=== PATIENT | female | born 1995 | race Caucasian/White ===

== ENCOUNTER 2016-06-14 18:17 | Inpatient (IN) | payer BC, OTHER ==
[~2016-06-14] VITALS: Ht 170.2 cm; Wt 59.0 kg
[2016-06-16] MEDS ORDERED: ONDANSETRON ODT 4 MG TAB.RAPDIS SL PRN (13:15)
[2016-06-16] MEDS ORDERED: DIAZEPAM 10 MG TABLET PO PRN ×2 (13:15)
[2016-06-16] MEDS ORDERED: ONDANSETRON 4 MG/2 ML VIAL IM PRN (13:15)
[2016-06-16] MEDS ORDERED: CLONIDINE HCL 0.1 MG TABLET PO PRN (13:15)
[2016-06-16] MEDS ORDERED: DICYCLOMINE HCL 20 MG TABLET PO PRN (13:15)
[2016-06-16] MEDS ORDERED: METHOCARBAMOL 750 MG TABLET PO PRN (13:15)
[2016-06-16] MEDS ORDERED: LORAZEPAM 2 MG/1 ML VIAL IM PRN (13:15)
[2016-06-16] MEDS ORDERED: HYDROXYZINE PAMOATE 25 MG CAPSULE PO PRN (13:15)
[2016-06-16] MEDS ORDERED: IBUPROFEN 600 MG TABLET PO PRN (13:15)
[2016-06-16] MEDS ORDERED: BUPRENORPHINE HCL 2 MG TAB.SUBL SL PRN (13:15)
[2016-06-16] MEDS ORDERED: LOPERAMIDE HCL 2 MG CAPSULE PO PRN (13:15)
[2016-06-16] MEDS ORDERED: MIRALAX 17 GM POWD.PACK PO PRN (13:15)
[2016-06-16] MEDS ORDERED: MAGNESIUM HYDROXIDE 30 ML LIQUID UDC PO PRN (13:15)
[2016-06-16] MEDS ORDERED: diphenhydrAMINE 50 MG CAPSULE PO PRN (13:15)
[2016-06-16] MEDS ORDERED: MAG HYDROX/AL HYDROX/SIMETH 30 ML LIQUID UDC PO PRN (13:15)
[2016-06-16] MEDS ORDERED: ACETAMINOPHEN 325 MG TABLET PO PRN (13:15)
[2016-06-16] MEDS ORDERED: DIAZEPAM 5 MG TABLET PO PRN (13:15)
[2016-06-16] MEDS ORDERED: LEVO750T46 PO (13:57)
[2016-06-16 14:11] LABS: *URINE HCG, QUAL NEGATIVE (NEGATIVE)
[2016-06-16 14:21] LABS: *AMPHETAMINE, URINE POSITIVE (NEGATIVE); *BARBITURATE, URINE NEGATIVE (NEGATIVE); *CANNABINOID, URINE NEGATIVE (NEGATIVE); *COCCAINE, URINE NEGATIVE (NEGATIVE); *OPIATE, URINE POSITIVE (NEGATIVE); *PHENCYCLIDINE SCREEN,URINE NEGATIVE (NEGATIVE)
[2016-06-16 15:00] LABS: BASOPHILS % (AUTO) 0.2 % (0.0-2.0); EOSINOPHILS # (AUTO) 0.1 K/uL (0.0-0.7); EOSINOPHILS % (AUTO) 0.8 % (0.0-7.0); HEMATOCRIT 35.9 % (31.2-41.9); HEMOGLOBIN 12.3 g/dL (10.9-14.3); LYMPHOCYTES # (AUTO) 2.5 K/uL (20.0-40.0); LYMPHOCYTES % (AUTO) 29.2 % (20.5-51.5); MEAN CORPUSCULAR HEMOGLOBIN 28.5 uug (24.7-32.8); MEAN CORPUSCULAR HGB CONC 34 g/dL (32.3-35.6); MEAN CORPUSCULAR VOLUME 83.3 fL (75.5-95.3); MONOCYTES # (AUTO) 0.9 K/uL (2.0-10.0); MONOCYTES % (AUTO) 10.3 % (0.0-11.0); NEUTROPHILS # (AUTO) 5.2 K/uL (1.8-8.9); NEUTROPHILS % (AUTO) 59.5 % (38.5-71.5); PLATELET COUNT (AUTO) 202 K/uL (179-408); RED BLOOD CELL COUNT(AUTO) 4.31 MIL/uL (3.63-4.92); RED CELL DISTRIBUTION WIDTH 12.4 % (12.3-17.7); WHITE BLOOD COUNT (AUTO) 8.7 K/uL (3.8-11.8)
--- NOTE | 2016-06-16 15:05 | NUR ---
ADMISSION Admitted a 20 year old female from [facility]. patient arrived on unit at 1304. Patients body assessment completed noted with multiple track quiñones on bilateral forearms, also noted with multiple scabs on bilateral upper extremities and lower extremities, no open wounds noted, no bruising noted, per patient scabs are from picking at her skin. Per patient she was started on antibiotic therapy Levaquin 750mg for abscess on right inner arm, area noted with no redness, but noted with swelling and hard to touch, per patient has taken for one day. Per patient was in the emergency room two days ago, but did not get admitted for evaluation of abscess on left inner forearm. Patients body search completed by female FRICTION PAINT MACHINE TENDER no contraband found. Patient was oriented to unit and to room, education regarding call light use provided with good verbal understanding. patient is alert and oriented x4. bp: 118/74 p: 78 r: 16 o2 sat: 98% room air t: 98.0. Denies pain/discomfort. Patient is 5 feet 7 inches and weighs 130lbs. Patient reports no known drug allergies. Reports does not have a primary care physician. Patient with admitting Dx: opiate/bzo dependence. Patient denies any pre existing medical or psychiatric conditions. Patient reports history of seizure, reports one episodes in june 2015 when she was arrested and in intermediate, seizure was r/t BZO W/D. Patient reports mother is a marijuana smokes, father is an alcoholic drinker, and sister is a methamphetamine ex-user. Per patient reports has had 7 spinal surgeries r/t spinal kyphosis, last spinal surgery was August 2012. Patient also reports had brain surgery 01/2016 r/t subdural hematoma, per patient had head trauma and when she went to intermediate in june 2015 fell d/t seizure activity which caused hematoma to burst and began growing in jan 2016 "bony mass, lesion" was removed. Patient also reports she has a "blood clot" to right arm D/T IV drug use. Patient with substance use history of: 1. heroin began using at the age of 11 for the last 1.5 months has been using heroin 1gram IV, last used 0.3gram on 06/16/2016. 2. Xanax began using at the age of 17, for the last 1.5 months has been using Xanax PO 1.5-2 bars of 2 mg each daily, last used 06/13/2016. 3. methamphetamine, began using at the age of 13 for the last 1.5 months has been using methamphetamine smoked 0.1gram, last used 06/13/2016 0.1gram. 4. marijuana, began using at the age of 10, for the last 4 years has been using marijuana (in) every other day "a few hits" reports last used 06/15/2016 a "few hits". Per patient she relapsed 1.5 month ago, reports was sober for 2 years. Patient treatment history. 1. [facility] detox treatment for 7 days in Nov 2014 2. [facility] in [place] for 2 weeks in July 2015. 3. [facility] area from August 2015-Feb 2016. patient was seen and examined by Dr. Yanes with new admitting orders. Psychiatrist notified of new admission. safety measures in place. call light with in reach, will continue to monitor closely.
[2016-06-16 15:15] LABS: ETHANOL < 3 MG/DL (0-0)
[2016-06-16 15:16] LABS: ALANINE AMINOTRANSFERASE 17 U/L (14-59); ALBUMIN 3.5 g/dL (3.4-5.0); ALKALINE PHOSPHATASE 114 U/L (50-136); ASPARTATE AMINOTRANSFERASE 19 U/L (15-37); BILIRUBIN,TOTAL 0.2 mg/dL (0.2-1.0); CALCIUM 8.7 mg/dL (8.5-10.1); CARBON DIOXIDE 30 mmol/L (21-32); CHLORIDE 103 mmol/L (98-107); CREATININE 0.6 mg/dL (0.6-1.3); GFR 125 mL/min (>60); GLUCOSE 76 mg/dL (74-106); MAGNESIUM 1.7 mg/dL (1.8-2.4); SODIUM SERUM 141 mmol/L (136-145); TOTAL PROTEIN, SERUM 7.4 g/dL (6.4-8.2); UREA NITROGEN, BLOOD 8 mg/dL (7-18)
--- NOTE | 2016-06-16 15:37 | NUR ---
MD COMMUNICATION Patient to began a 5 day Valium taper today and scheduled to begin 5 day Subutex taper tomorrow, will monitor closely, has PRN medications available for s/sx of infection.
[2016-06-16] MEDS: LEVOFLOXACIN 750 MG TABLET PO SCH (15:43)
[2016-06-16] MEDS: DIAZEPAM 10 MG TABLET PO SCH ×2 (15:43→21:06)
[2016-06-16] MEDS ORDERED: MAGNESIUM OXIDE 400 MG TABLET PO ONE (16:00)
[2016-06-16 16:16] LABS: HIV-1 p24 ANTIGEN NON REACTIVE (NONREACTIVE); HIV-1/2 ANTIBODY NON REACTIVE (NONREACTIVE)
[2016-06-16 17:42] VITALS: BP 106/60
--- NOTE | 2016-06-16 18:48 | NUR ---
END OF SHIFT Patient alert and oriented x4, vital signs were stable during shift. Patient compliant with therapeutic plan of care. Patient with admitting Dx: Opiate/BZO dependence. Patient was placed on a 5 day Valium taper started today at 1500 and 5 day Subutex taper to start tomorrow (06/17/2016). Well tolerated, no ASE noted. Patient encouraged adequate PO fluid intake as tolerated . 1500 assessment patient presented with moderate anxiety with ciwa score of: 4 and cow score of: 0. 1700 assessment patient presented with: no s/sx of withdrawal with cow score of: 0 and ciwa score of: 0. Administered no PRNs during shift. Magnesium was replaced as ordered for mg level of 1.7. Abdomen is soft and non distended, bowel sounds heard in all quadrants. Patient encouraged to attend group therapies/sessions to learn new coping skills to prevent relapse, denies SI/HI, noted self motivated towards sobriety. Patients safety measures as in place. All needs met and rendered, will continue to monitor closely. Patient endorsed to instant potato processing supervisor nurse all pertinent information discussed
[2016-06-16 20:00] VITALS: BP 91/45
--- NOTE | 2016-06-16 20:00 | NUR ---
Start of Shift Note: Report received from day shift nurse. Pt is a 18 yo female admitted on 06/16/16 for medically-supervised withdrawal from opiates and benzodiazepines. Pt reports using 1gm IV heroin, 3-4mg Xanax, and 0.2gm methamphetamine daily for 1.5 months. Pt also reports daily use of marijuana. Pt has started a 5-day Valium taper today and is to start a 5-day Subutex taper tomorrow morning. Last day shift COWS=0, CIWA=0. Pt is on a regular diet. Pt reports NKDA/NKFA. Pt reports med hx: spinal kyphosis with sx repair x7, and hx of seizure r/t bzo withdrawal (June 2015). Pt is currently in room, and reports diaphoresis and chills. Bed is in low position and locked, side rails up x2, call light within reach. Will continue to monitor.
[2016-06-16] MEDS: LACTOBACILLUS RHAMNOSUS GG 1 EACH CAPSULE PO SCH (21:06)
[2016-06-17] VITALS (7 sets, daily range): BP systolic 105–112; BP diastolic 53–71
--- NOTE | 2016-06-17 04:00 | NUR ---
COWS and CIWA Deferred: COWS and CIWA assessments are deferred for sleep. VS: 98.6, 97, 12, 99%, 105/60. All safety precautions are in place. Will continue to monitor. Addendum: 06/17/16 at 0505 by SANTINO HICKEY RN Amended: Links added.
--- NOTE | 2016-06-17 06:51 | NUR ---
End of Shift Note: Pt is a 20 yo female admitted to [facility] on 06/16/16 for medically-supervised withdrawal from opiates and benzodiazepines. Pt reports med hx: spinal kyphosis with sx repair x7, and hx of seizure r/t bzo withdrawal (June 2015). Pt is on a regular diet. Pt reports NKDA/NKFA. Pt reports using 1gm IV heroin, 3-4mg Xanax, and 0.2gm methamphetamine daily for 1.5 months. Pt also reports daily use of marijuana. Pt is to start day 2 of a 5-day Valium taper and is to start day 1 of a 5-day Subutex taper this morning. Scheduled medication regime effectively managed s/s of withdrawal this shift and COWS/CIWA scores remained low. Last COWS=3, CIWA=3 at 00:00. No PRN medications were necessary. V/S stable throughout shift, with HR elevated at 85 (20:00), 100 (00:00), and 97 (04:00). Total fluid intake this shift: 946 ml; output: urine x 1 and BM x 0. Pt currently in bed and slept 10 hours this shift. Pt endorsed to day shift nurse.
--- NOTE | 2016-06-17 08:02 | NUR ---
BEGINNING OF SHIFT Patient endorsement report received from plant operator/shift supervisor nurse, all pertinent information discussed. Patient Per plant operator/shift supervisor report patient slept for 10 hours, last cow score of: 3 and last ciwa score of: 3. Received no PRN's doing plant operator/shift supervisor. Patient with admitting Dx: opiate/bzo dependence. Patient with ongoing Valium taper as ordered and is scheduled to begin 5 day Subutex taper as ordered by MD will administer as ordered within parameters as ordered by MD. Patient received in bed with eyes closed, respirations are even and unlabored. patient responsive to verbal stimuli. educated regarding plan of care for the day and medication regimen with good verbal understanding. will continue to monitor closely. safety measures in place.
[2016-06-17] MEDS: LACTOBACILLUS RHAMNOSUS GG 1 EACH CAPSULE PO SCH ×2 (08:42→20:46)
[2016-06-17] MEDS: DIAZEPAM 5 MG TABLET PO SCH ×4 (08:42→20:47)
[2016-06-17] MEDS: MULTIVITAMINS,THERAPEUTIC TABLET PO SCH (08:42)
[2016-06-17] MEDS ORDERED: TUBERCULIN,PURIF.PROT.DERIV. 5 TU/0.1 ML TEST ID ONE (09:00)
[2016-06-17] MEDS: BUPRENORPHINE HCL 2 MG TAB.SUBL SL SCH ×3 (09:00→20:47)
--- NOTE | 2016-06-17 10:30 | NUR ---
MD COMMUNICATION Patient refused 0900 dose of Subutex as per patient "i don't need it right now" Dr. Yanes notified, as per MD recommended for patient to received Subutex 4mg sl, per MD, risk vs benefits of refusing detox medications were explained by doctor and by nurse. Educated regarding s/sx of withdrawal. Per nursing assessment at 1000 patient presenting with: heart rate of 83, observable moist on face, larger than normal size pupils, mild bone and joint aches, yawning x2, and gooseflesh with cow score of: 11. Will continue to monitor closely. Safety measures in place. call light kept with in reach at all times. will continue to monitor.
[2016-06-17] MEDS: LEVOFLOXACIN 750 MG TABLET PO SCH (14:11)
[2016-06-17 14:13] LABS: HCV AB <0.1 s/co ratio (0.0-0.9); HEPATITIS B CORE AB, IgM Negative (Negative); HEPATITIS B SURFACE AG Negative (Negative)
--- NOTE | 2016-06-17 18:52 | NUR ---
END OF SHIFT Patient alert and oriented x4, vital signs were stable during shift. Patient compliant with therapeutic plan of care. Patient with admitting Dx: Opiate/BZO dependence. Patient continues on a 5 day Valium taper and 5 day Subutex taper, well tolerated, no ASE noted. Patient encouraged adequate PO fluid intake as tolerated . 0900 assessment patient presented with: c/o chills, pupils larger than normal size, mild bone and joint aches. And mild anxiety and barely sweating with cow score of: 2. 1300 assessment patient presented with: sweats, mild anxiety, heart rate of 82, pupils larger alysha normal size, mild bone and joint aches, yawning, and goose bumps with cow score of: 11. 1700 assessment patient presented with: heart rate of 84, c/o chills, pupils larger than normal, mild bone and joint aches, moist eyes, yawning x2, goosebumps, mild anxiety and barely sweating with cow score of: 10 and ciwa score of: 2, detox medications effective at reducing withdrawal symptoms. Patient refused 0900 dose of Subutex, risk of benefits of refusing detox medications were explained to patient. 1500 dose of Subutex administered as ordered, well tolerated, no ASE noted. Patient PPD done on left forearm, procedure well tolerated. Abdomen is soft and non distended, bowel sounds heard in all quadrants. Patient encouraged to attend group therapies/sessions to learn new coping skills to prevent relapse, denies SI/HI, noted self motivated towards sobriety. Patients safety measures as in place. All needs met and rendered, will continue to monitor closely. Patient endorsed to captain assistant nurse all pertinent information discussed.
--- NOTE | 2016-06-17 19:15 | NUR ---
Start of Shift Note: Patient is a 20 y/o female admitted on 06/16/16 for Opiate and Benzo dependence. Patient reported using Heroin IV 1 gram daily and Xanax PO 3-4mg daily for 1.5 months. Patient also reported using Meth & Marijuana. Patient has medical history of Spinal Kyphosis surgery and history of seizure in June 2015 d/t benzo withdrawal. Patient is on a regular diet with no known food and drug allergies. Full Code status. Patient is on a 5-day Valium and 5-day Subutex taper and tolerating well. Patient has multiple track quiñones & scabs on both BUE & BLE. Patient has abscess on her right arm and she is on ATB Levaquin. Last COWS is 10 CIWA 2. No PRN's given during day shift. Patient is alert & oriented x4. No shortness of breath noted. Respiration even & unlabored. Abdomen soft & non-distended. No nausea/vomiting noted. Patient denies pain/discomfort. Patient complains of sweating, chills, restlessness & teary eyes. No hallucinations noted. Patient denies SI/HI. Safety precautions are in place. Bed locked in lowest position. Both side rails up. Call light within patient reach. Will continue to monitor patient.
[2016-06-18] VITALS: BP 98/60
[2016-06-18 04:00] VITALS: BP 107/60
--- NOTE | 2016-06-18 07:00 | NUR ---
Start of Shift Endorsement received from nightshift nurse. Pt is a 20 y/p female admitted for Heroin and Xanax dependence. Pt has been placed on a 5 day Valium and 5 day Subutex taper. Pt is tolerating the tapers well and mild to moderately withdrawing at this time AEB COWS 6, CIWA 3. NO PRN medications were administered. Pt slept 8 hours. VS WNL, Full Code. PT is alert and oriented x4. Pt is in STABLE condition at this time. Remains compliant with medication and diet regimen. All needs have been met, All safety measures in place per hospital policy. Bed in lowest position, side rails up x2, call-light within reach. Will continue to monitor
--- NOTE | 2016-06-18 07:21 | NUR ---
END OF SHIFT NOTE: Patient is a 20 y/o female admitted on 06/16/16 for Opiate and Benzo dependence. Patient reported using Heroin IV 1 gram daily and Xanax PO 3-4mg daily for 1.5 months. Patient also reported using Meth & Marijuana. Patient has medical history of Spinal Kyphosis surgery and history of seizure in June 2015 d/t benzo withdrawal. Patient is on a regular diet with no known food and drug allergies. Full Code status. Patient is on a 5-day Valium and 5-day Subutex taper and tolerating well. Patient has multiple track quiñones & scabs on both BUE & BLE. Patient has abscess on her right arm and she is on ATB Levaquin. Last COWS 6 CIWA 3. No PRN's given during my shift. Pt had an uneventful night. Pt remained stable and vitals remains WNL. Pt remained compliant with treatment plan. Pt slept for a total of 8 hours. Pt consumed 1264 ml of fluids. Voided 4x with no bowel movement. All needs attended & met. Safety precautions are in place. Bed locked in lowest position. Both side rails up. Call light within pt's reach. Will endorse pt to day shift nurse.
[2016-06-18 08:00] VITALS: BP 124/75
[2016-06-18] MEDS: LACTOBACILLUS RHAMNOSUS GG 1 EACH CAPSULE PO SCH ×2 (08:53→21:50)
[2016-06-18] MEDS: MULTIVITAMINS,THERAPEUTIC TABLET PO SCH (08:53)
[2016-06-18] MEDS: DIAZEPAM 5 MG TABLET PO SCH ×3 (08:53→21:50)
[2016-06-18] MEDS ORDERED: BUPRENORPHINE HCL 2 MG TAB.SUBL SL SCH (09:00)
[2016-06-18 12:00] VITALS: BP 112/60
--- NOTE | 2016-06-18 13:31 | NUR ---
Encourage client to attend group therapy session.
[2016-06-18] MEDS: BUPRENORPHINE HCL 2 MG TAB.SUBL SL SCH ×2 (15:36→21:50)
[2016-06-18] MEDS: LEVOFLOXACIN 750 MG TABLET PO SCH (15:36)
[2016-06-18 16:00] VITALS: BP 102/65
--- NOTE | 2016-06-18 18:54 | NUR ---
End of Shift Endorsement given to nightshift nurse. Pt is a 20 y/p female admitted for Heroin and Xanax dependence. Pt has been placed on a 5 day Valium and 5 day Subutex taper. Pt is tolerating the tapers well and moderately withdrawing at this time AEB COWS 6, CIWA 4. Pt presented with COWS of 10 and CIWA 8 during morning but her symptoms improved throughout the day. NO PRN medications were administered. PT slept the whole day in her room, sleeping. PT did not participate in groups or activities. Pt reports wanting to just sleep. Educated pt on side effects of Valium and Subutex, encouraged pt to go outside and participate in groups. VS WNL, Full Code. PT is alert and oriented x4. Pt is in STABLE condition at this time. Remains compliant with medication and diet regimen. All needs have been met, All safety measures in place per hospital policy. Bed in lowest position, side rails up x2, call-light within reach. Will continue to monitor
--- NOTE | 2016-06-18 19:30 | NUR ---
START OF SHIFT NOTES : Endorsement received from nightshift nurse. Pt is a 20 y/p female admitted for Heroin and Xanax dependence. Pt has been placed on a 5 day Valium (started 06/16/2016) and 5 day Subutex(started 06/17/2016) taper. Pt is tolerating the tapers well , last COWS 6, CIWA 4 at 16:00. VS WNL, Full Code. PT is alert and oriented x4. Pt is in STABLE condition at this time. Remains compliant with medication and diet regimen. Safety measures in place : bed on lowest position with side rails x2 up for safety, call light within reach. Will continue to monitor closely and offer help.
[2016-06-18 20:00] VITALS: BP 111/72
[2016-06-19] VITALS: BP 101/54
[2016-06-19 04:00] VITALS: BP 98/56
--- NOTE | 2016-06-19 07:05 | NUR ---
END OF SHIFT NOTE : Pt is a 20 y/p female admitted for Heroin and Xanax dependence. Pt has been placed on a 5 day Valium (started 06/16/2016) and 5 day Subutex(started 06/17/2016) taper. Pt is tolerating the tapers well. Full Code. PT is alert and oriented x4. Pt is in STABLE condition at this time. Pt. has tachycardia, GE=125 in the evening, ND=492 at 04:00, BP was stable during my shift. Pt remains compliant with the treatment plan. No PRNs were given during my shift. RR=16, even and unlabored, lungs clear upon auscultation, abdomen soft and non- distended. Pt denies nausea, vomiting and diarrhea. LAST CIWA=3 ,COWS=3 at 0400 , PVIGSN=314 ml, voided x 1, slept 5 hours[address] measures in place : bed on lowest position with side rails x2 up for safety, call light within reach. Will continue to monitor closely and offer help.
--- NOTE | 2016-06-19 07:35 | NUR ---
START OF SHIFT NOTE: Received report from evening or night nurse supervisor nurse. Patient is a 20 y/o female admitted on 06/16/16 for Opiate and Benzo dependence. Pt is on a 5 day Valium and 5 day Subutex taper. Tolerating well. Pt is alert and oriented X4. Color good, skin warm and dry. Respirations even and unlabored. Safety precautions observed. Call light within reach. Will continue to monitor.
[2016-06-19 08:09] VITALS: BP 104/52
[2016-06-19] MEDS: LACTOBACILLUS RHAMNOSUS GG 1 EACH CAPSULE PO SCH ×2 (09:42→21:02)
[2016-06-19] MEDS: BUPRENORPHINE HCL 2 MG TAB.SUBL SL SCH ×3 (09:42→21:03)
[2016-06-19] MEDS: MULTIVITAMINS,THERAPEUTIC TABLET PO SCH (09:43)
[2016-06-19] MEDS: DIAZEPAM 5 MG TABLET PO SCH ×2 (09:43→21:02)
--- NOTE | 2016-06-19 09:45 | NUR ---
VSS COWS 3 CIWA 3 c/o anxiety, sweating
[2016-06-19 12:33] VITALS: BP 96/52
[2016-06-19] MEDS: LEVOFLOXACIN 750 MG TABLET PO SCH (14:56)
--- NOTE | 2016-06-19 14:57 | NUR ---
VSS COWS 4 c/o sweating and anxiety. Pt noted to be sleeping most of the day. Pt encouraged to attend group and activities.
[2016-06-19 17:33] VITALS: BP 115/66
--- NOTE | 2016-06-19 18:40 | NUR ---
END OF SHIFT NOTE: Report given to fiberglass pipe covering supervisor nurse . Patient is a 20 y/o female admitted on 06/16/16 for Opiate and Benzo dependence. Pt is on a 5 day Valium and 5 day Subutex taper. Tolerating well. Pt is alert and oriented X4. Color good, skin warm and dry. Respirations even and unlabored. Vital signs have remained stable throughout shift. LAST COWS 4 CIWA 3 @ 1700. No prn medications administered. Safety precautions observed. Call light within reach.
--- NOTE | 2016-06-19 19:30 | NUR ---
START OF SHIFT NOTE : Pt is a 20 y/p female admitted for Heroin and Xanax dependence. Pt has been placed on a 5 day Valium (started 06/16/2016) and 5 day Subutex(started 06/17/2016) taper. Pt is tolerating the tapers well. Full Code. PT is alert and oriented x4. Pt is in STABLE condition at this time. Remains compliant with medication and diet regimen. Safety measures in place : bed on lowest position with side rails x2 up for safety, call light within reach. Will continue to monitor closely and offer help.
[2016-06-19 20:00] VITALS: BP 110/68
--- NOTE | 2016-06-20 07:09 | NUR ---
Start of shift Endorsement received from nightshift nurse. Pt is a 20 y/p female admitted for Heroin and Xanax dependence. Pt has been placed on a 5 day Valium and 5 day Subutex taper. Pt is tolerating the tapers well and mildly withdrawing at this time AEB COWS 2, CIWA 2 at 0400. Pt reports readiness for sobriety and reports looking forward to being discharged. NO PRN medications were administered. Pt slept 5 hours. VS WNL, Full Code. PT is alert and oriented x4. Pt is in STABLE condition at this time. Remains compliant with medication and diet regimen. All needs have been met, All safety measures in place per hospital policy. Bed in lowest position, side rails up x2, call-light within reach. Will continue to monitor
--- NOTE | 2016-06-20 07:22 | NUR ---
END OF SHIFT NOTE : Pt is a 20 y/p female admitted for Heroin and Xanax dependence. Pt has been placed on a 5 day Valium (started 06/16/2016) and 5 day Subutex(started 06/17/2016) taper. Pt is tolerating the tapers well. Full Code. PT is alert and oriented x4. Pt is in STABLE condition at this time. No PRNs were given during my shift. RR=16, even and unlabored, lungs clear upon auscultation, abdomen soft and non- distended. Pt denies nausea, vomiting and diarrhea. LAST CIWA=2 ,COWS=2 at 0400 , YSGIXL=5167 ml, voided x 2, slept 5 hours. Safety measures in place : bed on lowest position with side rails x2 up for safety, call light within reach. Will continue to monitor closely and offer help.
[2016-06-20 08:00] VITALS: BP 115/61
[2016-06-20] MEDS ORDERED: BUPRENORPHINE HCL 2 MG TAB.SUBL SL SCH ×2 (09:00)
[2016-06-20] MEDS ORDERED: DIAZEPAM 2 MG TABLET PO SCH (09:00)
[2016-06-20] MEDS: MULTIVITAMINS,THERAPEUTIC TABLET PO SCH (09:31)
[2016-06-20] MEDS: LACTOBACILLUS RHAMNOSUS GG 1 EACH CAPSULE PO SCH ×2 (09:31→22:16)
[2016-06-20 12:00] VITALS: BP 119/76
[2016-06-20] MEDS ORDERED: HYDR-3895 PO (13:20)
[2016-06-20] MEDS ORDERED: DICY20TA28 PO (13:20)
[2016-06-20] MEDS ORDERED: METH-33 PO (13:20)
[2016-06-20] MEDS ORDERED: Ibuprofen PO (13:20)
[2016-06-20] MEDS ORDERED: DIPH50CA37 PO (13:20)
[2016-06-20] MEDS: LEVOFLOXACIN 750 MG TABLET PO SCH (15:21)
[2016-06-20 16:00] VITALS: BP 113/63
--- NOTE | 2016-06-20 16:19 | NUR ---
Therapist encouraged client to attended group.
--- NOTE | 2016-06-20 19:16 | NUR ---
End of Shift Endorsement given to nightshift nurse. Pt is a 20 y/p female admitted for Heroin and Xanax dependence. Pt has been placed on a 5 day Valium and 5 day Subutex taper. Pt is tolerating the tapers well and mildly withdrawing at this time AEB COWS 2, CIWA 3 at 1600. Pt has been scheduled to be discharged on 06/21/16, all documentation has beeen completed. PT has been educated on her medications and side effects. Pt reports readiness for discharge. NO PRN medications were administered. Pt spent most of the day in her bed and appeared to be sleeping. Pt did not participate in groups or activities. intake: 2670ml, Void x3, BM x1. VS WNL, Full Code. PT is alert and oriented x4. Pt is in STABLE condition at this time. Remains compliant with medication and diet regimen. All needs have been met, All safety measures in place per hospital policy. Bed in lowest position, side rails up x2, call-light within reach. Will continue to monitor
--- NOTE | 2016-06-20 19:30 | NUR ---
START OF SHIFT NOTE : Pt is a 20 y/p female admitted for Heroin and Xanax dependence. Pt has been placed on a 5 day Valium (started 06/16/2016) and 5 day Subutex(started 06/17/2016) taper. Pt is tolerated tapers well. Full Code. PT is alert and oriented x4. Pt is in STABLE condition at this time. Remains compliant with medication and diet regimen. Pt. will be D/C tomorrow, UDS done. Safety measures in place : bed on lowest position with side rails x2 up for safety, call light within reach. Will continue to monitor closely and offer help.
[2016-06-20 20:00] VITALS: BP 124/79
[2016-06-21 00:43] LABS: *AMPHETAMINE, URINE NEGATIVE (NEGATIVE); *BARBITURATE, URINE NEGATIVE (NEGATIVE); *CANNABINOID, URINE NEGATIVE (NEGATIVE); *COCCAINE, URINE NEGATIVE (NEGATIVE); *OPIATE, URINE POSITIVE (NEGATIVE); *PHENCYCLIDINE SCREEN,URINE NEGATIVE (NEGATIVE)
--- NOTE | 2016-06-21 06:41 | NUR ---
END OF SHIFT NOTE : Pt is a 20 y/o female admitted for Heroin and Xanax dependence. Pt has been placed on a 5 day Valium (started 06/16/2016) and 5 day Subutex(started 06/17/2016) taper. Pt is tolerated tapers well. Full Code. PT is alert and oriented x4. Pt is in STABLE condition at this time. Remains compliant with medication and diet regimen. Pt. will be D/C today, UDS done. LAST CIWA= 1, COWS=1 at 0400 , INTAKE= 1564ml, voided x 3 slept 7 hours. Safety measures in place : bed on lowest position with side rails x2 up for safety, call light within reach. Will continue to monitor closely and offer help.
--- NOTE | 2016-06-21 07:00 | NUR ---
Start of Shift Notes: Received patient in her room. Alert and oriented x 4. Verbally responsive. Able to make her needs known. Respirations even and unlabored. No SOB noted. Skin warm and dry to touch. Abdomen soft and non-distended with (+) BS in all 4 quadrants. No complains of N/V/D or abdominal discomfort noted. Voids independently. Bladder non-distended. Ambulatory ad pranay with steady gait. Patient is a 20 year old female admtited for opiate and BZO dependence who has completed her 5-day Subutex and 5-day Valium as ordered. No adverse reactions noted. FULL CODE. Regular diet. NKA. On fall and seizure precautions. Educated patient on the discharge process and her medication regimen. Patient verbalized good understanding. All needs met and attended. Safety precautions in place. Will continue to monitor closely.
[2016-06-21 08:00] VITALS: BP 107/62
--- NOTE | 2016-06-21 08:00 | NUR ---
Discharge Instructions: Patient education provided regarding her discharge instructions. Educated patient on her prescription from Dr. Yanes. Patient verbalized good understanding. All clothings, medications and valuables were placed in a duffel bag. All necessary discharge paperwork such as UDS result, TB test, US result of right forearm and prescription were placed inside the duffel bag. Patient's cassette in med room was checked with charge nurse including CUSTODIAL FOREMAN cabinet for belongings. Med were returned to the patient and placed inside duffel bag. Patient's COWS 2, CIWA 1 due to anxiety. VS stable. No s/s of withdrawal noted. Awaiting for patient to be picked up by [facility] [facility] to be transported to [facility].
[2016-06-21] MEDS: LACTOBACILLUS RHAMNOSUS GG 1 EACH CAPSULE PO SCH (08:05)
[2016-06-21] MEDS: MULTIVITAMINS,THERAPEUTIC TABLET PO SCH (08:05)
[2016-06-21] MEDS ORDERED: BUPRENORPHINE HCL 2 MG TAB.SUBL SL SCH (09:00)
--- NOTE | 2016-06-21 09:08 | NUR ---
Discharged: Patient left the unit at this time in stable condition with all her belongings, valuables, returned medication and discharge packet. Escorted off the unit by dining room supervisor and was picked up by [employer] [facility] to be transported to [facility] in stable condition.
== END 2016-06-21 09:08 | disposition other institution (70) | DRG 895 ==
LOC: SRC 06-16 12:13
PROVIDERS: ADMIT Internal Medicine; ATTEND Internal Medicine
PROC: HZ2ZZZZ Detoxification Services for Substance Abuse Treatment (ICD-10-PCS; principal; 2016-06-16)
PROC: HZ31ZZZ Individual Counseling for Substance Abuse Treatment, Behavioral (ICD-10-PCS; 2016-06-18)
DX: F13.230 Sedative, hypnotic or anxiolytic dependence with withdrawal, uncomplicated (principal); L03.113 Cellulitis of right upper limb; I82.611 Acute embolism and thrombosis of superficial veins of right upper extremity; F11.220 Opioid dependence with intoxication, uncomplicated; F11.23 Opioid dependence with withdrawal; Z90.49 Acquired absence of other specified parts of digestive tract; Z82.49 Family history of ischemic heart disease and other diseases of the circulatory system; Z80.0 Family history of malignant neoplasm of digestive organs; Z83.3 Family history of diabetes mellitus; F17.210 Nicotine dependence, cigarettes, uncomplicated; S51.031S Puncture wound without foreign body of right elbow, sequela; X78.8XXS Intentional self-harm by other sharp object, sequela; G89.29 Other chronic pain; F41.9 Anxiety disorder, unspecified; M54.5 Low back pain; Z65.3 Problems related to other legal circumstances; E83.42 Hypomagnesemia; G47.00 Insomnia, unspecified; F15.10 Other stimulant abuse, uncomplicated; M40.209 Unspecified kyphosis, site unspecified; Z87.820 Personal history of traumatic brain injury
CPT/HCPCS: 36415; 80307; 80324; 80361; 83735; 84443; 84703; 85025; 86580; 86592; 86705; 86803; 87340; 87806; G6040-TC

== ENCOUNTER 2016-08-12 09:00 | Inpatient (IN) | payer BC, OTHER ==
[~2016-08-12] VITALS: Ht 170.2 cm; Wt 56.7 kg
[~2016-08-12 09:00] MED LIST: DICY20TA28 PO; DIPH50CA37 PO; HYDR-3895 PO; Ibuprofen PO; METH-33 PO
--- NOTE | 2016-08-12 15:30 | NUR ---
PRE-ADMISSION NOTE Intake assessment completed, patient is a 21 year old Female, alert and oriented. Patient with vital signs: bp: 132/93 heart rate of 125 o2 sat: 99% room air, r: 16 t: 98.0 Patient is 5 feet 7 inches and weighs 125lbs. Patient denies pain/discomfort. Patient denies any drug allergies. Patient reports he is here to detox off of: Heroin and methamphetamine. Patient was educated regarding unit protocols and policies, with good verbal understanding. Patient calm and cooperative, patient brought Ibuprofen and Probiotics home medications, denies taking any home prescriptions medications.
--- NOTE | 2016-08-12 15:45 | NUR ---
ADMISSION Admitted a 21 [address] female from [facility]. patient arrived on unit at 1545. Patients body assessment completed noted with multiple track quiñones on bilateral forearms, also noted with multiple scabs on bilateral upper extremities and lower extremities, no open wounds noted, no bruising noted, per patient scabs are from picking at her skin. Patients body search completed by female PROVIDER RELATIONS SPECIALIST no contraband found. Patient was oriented to unit and to room, education regarding call light use provided with good verbal understanding. Patient reports no known drug allergies. Reports her primary care physician is Dr. Aravind Stinson in [place] does not recall the name of it. Patient with admitting Dx: opiate dependence. Patient denies any pre existing medical or psychiatric conditions. Patient reports history of seizure, reports one episodes in june 2015 when she was arrested and in shelter, seizure was r/t BZO W/D. Patient reports mother is a marijuana smoker, father is an alcoholic drinker, and sister is a methamphetamine ex-user. Per patient reports has had 7 spinal surgeries r/t spinal kyphosis, last spinal surgery was August 2012. Patient also reports had brain surgery 01/2016 r/t subdural hematoma, per patient had head trauma and when she went to shelter in june 2015 fell d/t seizure activity which caused hematoma to burst and began growing in jan 2016 "bony mass, lesion" was removed. Per patient She relapsed 7 weeks ago, and has been usin. heroin 2 grams IV daily for 7 weeks last used 1 gram on 08/12/2016. 2. methamphetamine 0.25gram every three days for 7 weeks, last used 0.25gram smoked 08/11/2016. Patient reports she has been to "a few treatment centers" most recently: 1. [facility] May [address] [facility] for 7 days in Nov 2014 3. [facility] in [place] for 2 weeks in July 2015. Patient currently in room, alert and oriented pupils are equal and reactive to light, 3mm. Patients abdomen is soft and non [id number]. no N/V/D noted. Patients bowel sounds heard in all quadrants. Respirations even and unlabored. no SOB. Lungs clear upon auscultation. Dr. Escobar notified of new admission, as per MD he will input admitting orders. psychiatrist notified of new admission. safety measures in place. will continue to monitor closely.
[2016-08-12 16:09] LABS: *URINE HCG, QUAL NEGATIVE (NEGATIVE)
[2016-08-12 16:21] LABS: *AMPHETAMINE, URINE POSITIVE (NEGATIVE); *BARBITURATE, URINE NEGATIVE (NEGATIVE); *CANNABINOID, URINE NEGATIVE (NEGATIVE); *COCCAINE, URINE NEGATIVE (NEGATIVE); *OPIATE, URINE POSITIVE (NEGATIVE); *PHENCYCLIDINE SCREEN,URINE NEGATIVE (NEGATIVE)
[2016-08-12 17:00] VITALS: BP 128/77
[2016-08-12] MEDS ORDERED: ONDANSETRON 4 MG/2 ML VIAL IM PRN (17:15)
[2016-08-12] MEDS ORDERED: MAG HYDROX/AL HYDROX/SIMETH 30 ML LIQUID UDC PO PRN (17:15)
[2016-08-12] MEDS ORDERED: CLONIDINE HCL 0.1 MG TABLET PO PRN (17:15)
[2016-08-12] MEDS ORDERED: BUPRENORPHINE HCL 2 MG TAB.SUBL SL PRN (17:15)
[2016-08-12] MEDS ORDERED: HYDROXYZINE PAMOATE 25 MG CAPSULE PO PRN (17:15)
[2016-08-12] MEDS ORDERED: MAGNESIUM HYDROXIDE 30 ML LIQUID UDC PO PRN (17:15)
[2016-08-12] MEDS ORDERED: MIRALAX 17 GM POWD.PACK PO PRN (17:15)
[2016-08-12] MEDS ORDERED: LOPERAMIDE HCL 2 MG CAPSULE PO PRN ×2 (17:15)
[2016-08-12] MEDS ORDERED: diphenhydrAMINE 50 MG CAPSULE PO PRN (17:15)
[2016-08-12] MEDS ORDERED: ACETAMINOPHEN 325 MG TABLET PO PRN (17:15)
[2016-08-12] MEDS ORDERED: IBUPROFEN 600 MG TABLET PO PRN (17:15)
[2016-08-12] MEDS ORDERED: ONDANSETRON ODT 4 MG TAB.RAPDIS SL PRN (17:15)
[2016-08-12] MEDS ORDERED: METHOCARBAMOL 750 MG TABLET PO PRN (17:15)
[2016-08-12 18:06] LABS: BASOPHILS % (AUTO) 0.5 % (0.0-2.0); EOSINOPHILS # (AUTO) 0.1 K/uL (0.0-0.7); HEMATOCRIT 37.7 % (37-47); HEMOGLOBIN 12.3 G/DL (12.0-16.0); LYMPHOCYTES # (AUTO) 2.7 K/UL (0.8-4.8); LYMPHOCYTES % (AUTO) 34.3 % (20.5-51.5); MEAN CORPUSCULAR HEMOGLOBIN 26.8 UUG (27.0-31.0); MEAN CORPUSCULAR HGB CONC 33 g/dL (32.0-37.0); MEAN CORPUSCULAR VOLUME 82.3 FL (81.0-99.0); MONOCYTES # (AUTO) 1.2 K/UL (0.1-1.30); MONOCYTES % (AUTO) 14.8 % (0.0-11.0); NEUTROPHILS % (AUTO) 49.4 % (38.5-71.5); PLATELET COUNT (AUTO) 233 K/UL (150-450); RED BLOOD CELL COUNT(AUTO) 4.59 MIL/UL (4.2-5.4)
[2016-08-12 18:15] LABS: ALANINE AMINOTRANSFERASE 16 U/L (14-59); ALKALINE PHOSPHATASE 123 U/L (50-136); ASPARTATE AMINOTRANSFERASE 22 U/L (15-37); BILIRUBIN,TOTAL 0.3 mg/dL (0.2-1.0); CARBON DIOXIDE 33 mmol/L (21-32); CHLORIDE 101 mmol/L (98-107); CREATININE 0.6 mg/dL (0.6-1.3); GLUCOSE 64 mg/dL (74-106); POTASSIUM 3.6 mmol/L (3.5-5.1); TOTAL PROTEIN, SERUM 8.7 g/dL (6.4-8.2); UREA NITROGEN, BLOOD 11 mg/dL (7-18)
[2016-08-12] MEDS ORDERED: BACI1CAP PO (18:20)
--- NOTE | 2016-08-12 18:48 | NUR ---
END OF SHIFT Patient alert and oriented x4, vital signs were stable during shift. patient compliant with therapeutic plan of care, Patient admitted today during shift, 1700 assessment patient presented with:mild anxiety and heart rate of: 101 with cow score of: 3. Patient received no PRNs during shift. Patient encouraged to attend group therapies/sessions to learn new coping skills to prevent relapse. patient denies any SI/HI. safety measures in place. call light kept with in reach. patient endorsed to protection analyst nurse, all pertinent information discussed. will continue to monitor closely.
[2016-08-12 19:11] LABS: ETHANOL < 3 MG/DL (0-0)
[2016-08-12 19:14] LABS: THYROID STIMULATING HORMONE 4.418 mIU/mL (0.358-3.740)
--- NOTE | 2016-08-12 19:15 | NUR ---
START OF SHIFT NOTE : PT. IS 21 year old female from [facility], admitted on 08/12/2016 for Heroin , Meth. Dependency . Patient reports no known drug allergies. Patient denies any pre existing medical or psychiatric conditions. Patient reports history of seizure, reports one episodes in june 2015 when [facility] was [facility] in [facility], seizure was r/t BZO W/D. Per patient reports has had 7 spinal surgeries r/t spinal kyphosis, last spinal surgery was August 2012. Patient also reports had brain surgery 01/2016 r/t subdural hematoma, per patient had head trauma and when she [facility] to [facility] fell d/t seizure activity which caused hematoma to burst and began growing in jan 2016 "bony mass, lesion" was removed. Patient alert and oriented x4, Patient admitted today during shift, during my assessment patient presented with: mild anxiety and COWS score of: 3. Pt. compliant with therapeutic plan of care , Patient encouraged to attend group therapies/sessions to learn new coping skills to prevent relapse. patient denies any SI/HI. Safety measures in place. call light kept within reach. patient endorsed to maintenance supervisor 2nd shift nurse, all pertinent information discussed. will continue to monitor closely.
[2016-08-12 20:00] VITALS: BP 90/51
[2016-08-13 04:00] VITALS: BP 104/71
--- NOTE | 2016-08-13 06:38 | NUR ---
END OF SHIFT NOTE : PT. IS 21 year old female from [facility], admitted on 08/12/2016 for Heroin , Meth. Dependency . Patient reports no known drug allergies. Patient denies any pre existing medical or psychiatric conditions. Patient reports history of seizure, reports one episodes in june 2015 when she was arrested and in shelter, seizure was r/t BZO W/D. Per patient reports has had 7 spinal surgeries r/t spinal kyphosis, last spinal surgery was August 2012. Patient also reports had brain surgery 01/2016 r/t subdural hematoma, per patient had head trauma and when she went to shelter in june 2015 fell d/t seizure activity which caused hematoma to burst and began growing in jan 2016 "bony mass, lesion" was removed. Patient alert and oriented x4 . Patient encouraged to attend group therapies/sessions to learn new coping skills to prevent relapse. patient denies any SI/HI.Pt remains compliant with the treatment plan. No PRNs were given during my shift. V/S remain WNL. RR=16, even and unlabored, lungs clear upon auscultation, abdomen soft and non- distended. Pt denies nausea, vomiting and diarrhea.Last COWS=3 at 0400 , INTAKE= 900 ml, voided x 2, slept 10 hours.Pt. complains of mild burning during urinating, urine sent to the lab (UA+C/S). Safety measures in place. call light kept within reach. patient endorsed to night shift manager nurse, all pertinent information discussed. will continue to monitor closely.
--- NOTE | 2016-08-13 07:24 | NUR ---
START OF SHIFT NOTE: Received report from evening or night nurse supervisor nurse. Pt is a 21 year old female admitted on 08/12/2016 for Heroin and Meth. Dependency. Pt to start Subutex taper this AM. Pt is alert and oriented X4. Color good, skin warm and dry. Respirations even and unlabored. Pt NPO except for meds, awaiting abdominal ultrasound. Pt resting in bed. Safety precautions observed. Call light within reach. Will continue to monitor. Addendum: 08/13/16 at 0741 by RADHA BENITES RN Please disregard NPO. Made in error
[2016-08-13 08:00] VITALS: BP 104/71
[2016-08-13] MEDS: MULTIVITAMINS,THERAPEUTIC TABLET PO SCH (08:35)
[2016-08-13] MEDS: DOCUSATE SODIUM 250 MG CAPSULE PO SCH (08:38)
--- NOTE | 2016-08-13 08:38 | NUR ---
Pt refused Subutex. States "I want to see the doctor first." TB test administered RFA
[2016-08-13] MEDS ORDERED: TUBERCULIN,PURIF.PROT.DERIV. 5 TU/0.1 ML TEST ID ONE (09:00)
[2016-08-13] MEDS ORDERED: 5 DAY TAPER BUPRENORPHINE -SERENITY PROTOCOL SL PRN (09:00)
[2016-08-13] MEDS ORDERED: BUPRENORPHINE HCL 2 MG TAB.SUBL SL SCH (09:00)
[2016-08-13 12:59] VITALS: BP 100/56
[2016-08-13 13:22] LABS: *BILIRUBIN,URIN NEGATIVE (NEGATIVE); *BLOOD, URINE NEGATIVE (NEGATIVE); *CLARITY,URINE CLEAR (CLEAR); *COLOR,URINE YELLOW (YELLOW); *KETONES,URINE NEGATIVE (NEGATIVE); *PROTEIN,URINE NEGATIVE (NEGATIVE); NITRITE, URINE NEGATIVE (NEGATIVE); PH,URINE 8.5 (5.0-8.0); UGLUCOSE NEGATIVE (NEGATIVE)
[2016-08-13 13:39] LABS: LEUKOCYTE ESTERASE ,URINE 2+ (NEGATIVE)
[2016-08-13] MEDS ORDERED: BUPRENORPHINE HCL 2 MG TAB.SUBL SL PRN (13:45)
[2016-08-13 13:48] LABS: BACTERIA,URINE FEW /HPF (NONE SEEN); SQUAMOUS EPITHELIAL CELL,UR MODERATE /HPF (NONE SEEN); YEAST,URINE FEW /HPF (NONE SEEN)
[2016-08-13] MEDS: SULFAMETH/TRIMETH 800/160 MG TABLET PO SCH ×2 (14:43→20:09)
--- NOTE | 2016-08-13 15:00 | NUR ---
VSS COWS 2 Pt has not required any prn medication
[2016-08-13 16:50] VITALS: BP 102/68
--- NOTE | 2016-08-13 18:31 | NUR ---
END OF SHIFT NOTE: Report given to night guard nurse. Pt is a 21 year old female admitted on 08/12/2016 for Heroin and Meth. Dependency. Pt to start Subutex taper in AM. Pt is alert and oriented X4. Color good, skin warm and dry. Respirations even and unlabored. Vital signs have remained stable throughout shift. Last COWS 2 @ 1500. No prn meds administered. Pt resting in bed. Safety precautions observed. Call light within reach.
--- NOTE | 2016-08-13 19:15 | NUR ---
START OF SHIFT NOTE : PT. IS 21 year old female from [facility], admitted on 08/12/2016 for Heroin , Meth. Dependency . Patient reports no known drug allergies. Patient denies any pre existing medical or psychiatric conditions. Patient reports history of seizure, reports one episodes in june 2015 when she was arrested and in [facility], seizure was r/t BZO W/D. Per patient reports has had 7 spinal surgeries d/t spinal kyphosis, last spinal surgery was August 2012. Patient also reports had brain surgery 01/2016 r/t subdural hematoma, per patient had head trauma and when she went to senior care in june 2015 fell d/t seizure activity which caused hematoma to burst and began growing in jan 2016 "bony mass, lesion" was removed. Patient alert and oriented x4, during my assessment patient presented with: mild anxiety and COWS score of: 2. Pt. compliant with therapeutic plan of care , Patient encouraged to attend group therapies/sessions to learn new coping skills to prevent relapse. patient denies any SI/HI. Safety measures in place. call light kept within reach. patient endorsed to paint stripper nurse, all pertinent information discussed. will continue to monitor closely.
[2016-08-13 20:00] VITALS: BP 111/69
[2016-08-14] VITALS: BP 112/68
--- NOTE | 2016-08-14 03:45 | NUR ---
PRN MEDICATION: " I'm really detoxing. I have the shakes, body aches, I can't really sleep, my muscles hurt all overand I have really bad anxiety!" COWS 12. Prn Subutex 4 mg SL given per prn MD order.
[2016-08-14 04:00] VITALS: BP 108/66
--- NOTE | 2016-08-14 04:45 | NUR ---
REASSESSMENT PRN MEDICATION: Patient is sleeping comfortably with eyes closed and respirations quiet, even, unlabored at 12.
--- NOTE | 2016-08-14 06:30 | NUR ---
0630 Patient slept a total of 8 hours and she had 3 voids and no stools. Total intake was 1,394 ml p.o. Prn medication given noted separately per floor protocol. V/SS afebrile, last COWS at 0445 is 4. Patient is presently sleeping comfortably with eyes closed and respirations even, unlabored at 12. Patient is in stable condition at this time.
--- NOTE | 2016-08-14 07:15 | NUR ---
START OF SHIFT NOTE Received pt alert awake oriented x4 in stable condition. NKA, Full code, Regular diet. Pt admitted for Heroin, Meth. Dependence. Pt on 5 days Subutex taper starting this morning at 900. Patient denies any pre existing medical or psychiatric conditions. Patient reports history of seizure, reports one episodes in june 2015 when she was arrested and in assisted, seizure was r/t BENZO W/D. Per patient reports has had 7 spinal surgeries r/t spinal kyphosis, last spinal surgery was August 2012. Patient also reports had brain surgery 01/2016 r/t subdural hematoma, per patient had head trauma and when she went to assisted in june 2015 fell d/t seizure activity which caused hematoma to burst and began growing in jan 2016 "bony mass, lesion" was removed. Pt received PRN Subutex effective per night nurse, Slept for 8 hours. Educate the pt regarding plan of the day and medications regimen with good verbal understanding. All safety measures in place, call light within reach. Will cont to monitor.
[2016-08-14 08:00] VITALS: BP 102/63
[2016-08-14] MEDS: SULFAMETH/TRIMETH 800/160 MG TABLET PO SCH ×2 (08:20→20:19)
[2016-08-14] MEDS: MULTIVITAMINS,THERAPEUTIC TABLET PO SCH (08:20)
[2016-08-14] MEDS: BUPRENORPHINE HCL 2 MG TAB.SUBL SL SCH ×3 (08:21→20:20)
[2016-08-14] MEDS: DOCUSATE SODIUM 250 MG CAPSULE PO SCH (08:22)
[2016-08-14 12:00] VITALS: BP 110/60
[2016-08-14] MEDS: METHOCARBAMOL 750 MG TABLET PO SCH ×3 (14:08→20:19)
[2016-08-14 16:00] VITALS: BP 101/69
--- NOTE | 2016-08-14 19:18 | NUR ---
END OF SHIFT NOTE Pt started on 5 days Subutex taper and tolerating well. Pt presented with anxiousness, flushed face, chills, Taper stated this morning COWS score was 13. Pt reported medication effective to controlling her symptoms with evidence of last COWS score- 5. No PRN were given during shift. Encourage pt to drink fluids as tolerated. Pt attended some groups and activities. Vital signs stable. All safety measures in place, Call light within reach. Pt endorsed to night nurse in stable condition.
[2016-08-14 20:00] VITALS: BP 98/62
--- NOTE | 2016-08-14 20:00 | NUR ---
1999 Patient received resting quietly in her bed, in a -like position of comfort. Patient easily aroused for nurse assess and V/S. Patient states flatly, that she " feels okay" and has gone to a [facility] today, eaten some of her regular diet trays and is drinking fluids, with no real gastric issue. Patient is oriented to person, place, day and her personal situation. Reoriented to date and time. Patient's color is pink and her skin is slightly warm and clammy. Patient's overall appearance is disheveled and her body movements are slow. Vital signs are: 98.1-86-16 98/62, O2 Sat 96%, COWS 4. Patient denies any pain or other discomforts at this time and she offers no requests for anything. Patient was admitted on 08/12/16 for Heroin and Methamphetamine withdrawal and she has been on PRN Subutex medication for withdrawal symptoms. PRN Subutex has been effective and tolerated well whenever given, thus far. Patient is cooperative and verbally appropriate when interacting with nurse, though she only speaks, in monosyllables, when spoken to or when she is asked something. Overall mood/affect flat and guarded. Bed is locked and in lowest position, bed rails are up X 2 and call light is within patient's easy reach.
[2016-08-15] VITALS: BP 96/67
--- NOTE | 2016-08-15 04:00 | NUR ---
Patient refused to be awakened for V/S to be done at this time.
--- NOTE | 2016-08-15 06:30 | NUR ---
0630 Patient slept a total of 5 hours and she had 2 voids and no stools. Total intake was 885 ml p.o. Patient had no PRN medications given this shift. V/SS afebrile, last COWS was 3 at 0000. Patient is presently resting comfortably in stable condition with eyes closed and respirations quiet, even, unlabored at 12.
--- NOTE | 2016-08-15 07:48 | NUR ---
START OF SHIFT NOTE Received pt alert awake oriented x4 in stable condition. NKA, Full code, Regular diet. Pt admitted for Heroin, Meth. Dependence. Pt cont on 5 days Subutex taper tolerating. Patient denies any pre existing medical or psychiatric conditions. Patient reports history of seizure, reports one episodes in june 2015 when she was arrested and in assisted, seizure was r/t BENZO W/D. Per patient reports has had 7 spinal surgeries r/t spinal kyphosis, last spinal surgery was August 2012. Patient also reports had brain surgery 01/2016 r/t subdural hematoma, per patient had head trauma and when she went to assisted in june 2015 fell d/t seizure activity which caused hematoma to burst and began growing in jan 2016 "bony mass, lesion" was removed. Pt were not given any PRN per night nurse, Slept for 5 hours. Last COWS-3. Educate the pt regarding plan of the day and medications regimen with good verbal understanding. All safety measures in place, call light within reach. Will cont to monitor.
[2016-08-15 08:00] VITALS: BP 104/62
[2016-08-15] MEDS: SULFAMETH/TRIMETH 800/160 MG TABLET PO SCH ×2 (08:50→20:22)
[2016-08-15] MEDS: DOCUSATE SODIUM 250 MG CAPSULE PO SCH (08:50)
[2016-08-15] MEDS: MULTIVITAMINS,THERAPEUTIC TABLET PO SCH (08:50)
[2016-08-15] MEDS: METHOCARBAMOL 750 MG TABLET PO SCH ×3 (08:50→20:22)
[2016-08-15] MEDS ORDERED: BUPRENORPHINE HCL 2 MG TAB.SUBL SL SCH (09:00)
--- NOTE | 2016-08-15 10:50 | NUR ---
Therapist advised client of group times. Client stated she would try to attend.
[2016-08-15 12:00] VITALS: BP 119/70
[2016-08-15] MEDS: BUPRENORPHINE HCL 2 MG TAB.SUBL SL SCH ×2 (14:07→20:23)
[2016-08-15 14:08] LABS: HEPATITIS B SURFACE AG Negative (Negative)
[2016-08-15 16:00] VITALS: BP 114/60
--- NOTE | 2016-08-15 19:06 | NUR ---
END OF SHIFT NOTE Gave report to night nurse, 21 year old female from [facility], admitted on 08/12/2016 for Heroin , Meth. Dependence. Patient reports no known drug allergies. Patient denies any pre existing medical or psychiatric conditions. Patient reported history of seizure, reports one episodes in june 2015 when [facility] was [facility] and in [facility], seizure was r/t BENZO W/D. Per patient reports has had 7 spinal surgeries r/t spinal kyphosis, last spinal surgery was August 2012. Patient also reports had brain surgery 01/2016 r/t subdural hematoma, per patient had head trauma and when she [facility] to [facility] in [facility] fell d/t seizure activity which caused hematoma to burst and began growing in jan 2016 "bony mass, lesion" was removed. Patient alert and oriented x4. Patient encouraged to attend group therapies/sessions to learn new coping skills to prevent relapse. Pt remains compliant with the treatment plan. No PRN'S were given during shift. Last COWS-4. All safety measures in place, call light within reach. Pt endorsed to night nurse in stable condition.
[2016-08-15 20:00] VITALS: BP 103/54
--- NOTE | 2016-08-15 20:00 | NUR ---
1999 Patient received awake and lying quietly in bed watching television. Upon seeing nurse, patient states, " How are you?" Patient's color is pink and her skin is warm, very slightly moist and intact. Patient is oriented to person, place, day, date and her personal situation. Reoriented to time. patient states that she is " doing okay" and she is eating her regular diet trays and taking fluids as best she can, though her appetite is not big presently. Patient states also that she tries to attend [employer] groups as regular as she feels up to doing so, but today she only attended on group. Vital signs are: 97.7-98-16 103/54 O2 Sat 98%, COWS 3. Patient denies any pain or other discomforts at this time and she offers no c/o anything. Patient was admitted on 08/12/16 for Heroin and Methamphetamine withdrawal and she is currently on a 5-day Subutex medication taper, which she is apparently tolerating well thus far. Bed is locked and in lowest position, bed rails are up X 1 and call light within patient's easy reach.
--- NOTE | 2016-08-16 | NUR ---
Patient refused to be awakened for V/S to be done at this time.
--- NOTE | 2016-08-16 04:00 | NUR ---
Patient refused to be awakened for V/S to be done at this time.
--- NOTE | 2016-08-16 06:30 | NUR ---
0630 Patient slept a total of 9 hours and she had 1 void and no stools. Total intake was 1,200 ml p.o. No Prn medications given this shift. V/SS afebrile, last COWS 3 at 0000. Patient is presently sleeping comfortably in stable condition, with eyes closed and respirations unlabored at 12.
--- NOTE | 2016-08-16 07:41 | NUR ---
BEGINNING OF SHIFT Patient endorsement report received from early childhood special educator nurse, all pertinent information discussed. Patient is a 21 year old female admitted on 08/12/2016, Patient with ongoing 5 day Subutex tapers as ordered for admitting Dx: opiate dependence. Patient currently on day 3 of taper, will monitor closely.Patient with last cow score of:3. Patient received no PRNs during early childhood special educator. patient slept for 9 hours. Per early childhood special educator patient with ongoing Bactrim atb therapy as ordered for UTI, will monitor closely. Patient received in room, awake alert and oriented x4, educated regarding plan of care and medication regimen for the day with good verbal understanding. Safety measures in place. call light kept with in reach, will continue to monitor closely.
[2016-08-16 08:08] VITALS: BP 111/76
[2016-08-16] MEDS: MULTIVITAMINS,THERAPEUTIC TABLET PO SCH (08:19)
[2016-08-16] MEDS: METHOCARBAMOL 750 MG TABLET PO SCH ×3 (08:19→21:17)
[2016-08-16] MEDS: BUPRENORPHINE HCL 2 MG TAB.SUBL SL SCH ×3 (08:19→21:17)
[2016-08-16] MEDS: DOCUSATE SODIUM 250 MG CAPSULE PO SCH (08:19)
[2016-08-16 13:18] VITALS: BP 113/68
--- NOTE | 2016-08-16 15:23 | NUR ---
Therapist advised client of group times. Client said she will not be going today because she does not feel well.
--- NOTE | 2016-08-16 16:00 | NUR ---
REFUSED SUBUTEX Patient refused 1500 administration of detox medication Subutex, risk vs benefits of refusing detox medications were explained to patient with good verbal understanding. patient with current cow score of: 4. VS WNL. Dr. Escobar notified. Safety measures in place. will continue ot monitor closely.
[2016-08-16 17:00] VITALS: BP 106/68
--- NOTE | 2016-08-16 19:03 | NUR ---
END OF SHIFT Patient alert and oriented x4, vital signs were stable during shift. patient compliant with therapeutic plan of care. 0900 Assessment patient presented with: c/o chills, dilated pupils, mild bone and joint aches, tremors that can be felt but not seen, yawning, mild anxiety with cow score of: 6; 1300 assessment patient presented with: c/o chills, mild bone and joint aches, tremors that can be felt but not seen, mild anxiety with cow score of: 4. 1700 assessment patient presented with: c/o chills, mild bone and joint aches, tremors that can be felt but not seen, mild anxiety with cow score of: 4 . Patient received no PRNs during administration. During shift patient refused 1500 dose of Subutex despite explanation of risk vs benefits of refusing detox medications. MD was notified. Patient encouraged to increase PO fluid intake as tolerated. Patient encouraged to attend group therapies/sessions to learn new coping skills to prevent relapse. patient denies any SI/HI. safety measures in place. call light kept with in reach. patient endorsed to production floater nurse, all pertinent information discussed. will continue to monitor closely.
--- NOTE | 2016-08-16 19:50 | NUR ---
START OF SHIFT NOTE Pt is a 21 y/o female admitted for Heroin and Meth dependence and use. Pt has NKA but reported a PMH of spinal kyphosis, spinal surgery x 7 , and 2 seizures r/t benzodiazepine w/d. Per day shift nurse pt was placed on a 5 day Subutex taper and is tolerating medication well with no s/e or a/r reported. Pt didn't receive any PRNS during the day shift. Last COW: 4 (1600). At this time pt is asleep in bed with no signs of discomfort/distress noted. Pt's breathing is even and unlabored. All safety measures in place; side rails up x 2, bed locked and in low position, and call light within reach. Will continue to monitor.
[2016-08-16 20:00] VITALS: BP 101/60
--- NOTE | 2016-08-17 | NUR ---
COW AND VITALS REFUSED Pt refused to be assessed and have vitals taken at this time. Pt was encouraged x 3 with risks and benefits explained, but the pt still refused. All safety measures in place. Will continue to monitor. Addendum: 08/17/16 at 0558 by AZUCENA GAYTAN LVN Amended: Links added.
[2016-08-17 04:00] VITALS: BP 102/57
--- NOTE | 2016-08-17 07:30 | NUR ---
Start of shift note; Patient is AOX4. Patient is a 21 year old female admitted on 08/12/16 for Opiate withdrawals. Patient was placed on a Subutex taper, no adverse reactions noted. Patient reported history of spinal kyphosis, spinal surgery and seizure due to Benzo withdrawals. NKA, full code status and on a regular diet. Patient is on fall and seizure precautions. Bed in lowest position, call light within reach. Will continue to monitor patient.
--- NOTE | 2016-08-17 07:40 | NUR ---
END OF SHIFT NOTE Pt is a 21 y/o female admitted for Heroin and Meth dependence and use. Pt has NKA but reported a PMH of spinal kyphosis, spinal surgery x 7 , and 2 seizures r/t benzodiazepine w/d. Pt continues on a 5 day Subutex taper and is tolerating medication well with no s/e or a/r reported. Pt didn't receive any PRNS during the shift. Last COW: 1(0400). Pt slept for a total of 9 hours. All safety measures in place; side rails up x 2, bed locked and in low position, and call light within reach. Endorsed to the oncoming nurse.
[2016-08-17 08:00] VITALS: BP 104/69
[2016-08-17] MEDS: MULTIVITAMINS,THERAPEUTIC TABLET PO SCH (08:44)
[2016-08-17] MEDS: METHOCARBAMOL 750 MG TABLET PO SCH ×3 (08:44→21:00)
[2016-08-17] MEDS: DOCUSATE SODIUM 250 MG CAPSULE PO SCH (08:45)
[2016-08-17] MEDS ORDERED: BUPRENORPHINE HCL 2 MG TAB.SUBL SL SCH (09:00)
[2016-08-17 12:00] VITALS: BP 115/72
[2016-08-17 14:03] LABS: *AMPHETAMINE, URINE NEGATIVE (NEGATIVE); *BARBITURATE, URINE NEGATIVE (NEGATIVE); *CANNABINOID, URINE NEGATIVE (NEGATIVE); *COCCAINE, URINE NEGATIVE (NEGATIVE); *OPIATE, URINE NEGATIVE (NEGATIVE); *PHENCYCLIDINE SCREEN,URINE NEGATIVE (NEGATIVE)
[2016-08-17 16:00] VITALS: BP 130/80
--- NOTE | 2016-08-17 18:21 | NUR ---
End of shift note; Patient is a AOX4. Patient remained compliant with treatment plan. Medications were effective in reducing withdrawal symptoms. Patient was medically cleared for discharge tomorrow. Patient's last COWS score is 1 at 1600. Safety measure secured. Met all needs.
[2016-08-17 20:00] VITALS: BP 122/69
--- NOTE | 2016-08-17 20:00 | NUR ---
START OF SHIFT NOTE Pt is a 21 y/o female admitted for Heroin and Meth dependence and use. Pt has NKA but reported a PMH of spinal kyphosis, spinal surgery x 7 , and 2 seizures r/t benzodiazepine w/d. Per day shift nurse pt completed taper and is scheduled for discharge tomorrow. Pt didn't receive any PRNS during the day shift. Last COW: 1 (1600). At this time pt is asleep in bed with no signs of discomfort/distress noted. Pt's breathing is even and unlabored. All safety measures in place; side rails up x 2, bed locked and in low position, and call light within reach. Will continue to monitor.
--- NOTE | 2016-08-18 | NUR ---
COW AND VITALS DEFERRED Pt is asleep at this time. No signs of discomfort/distress noted. Breathing is even and unlabored. Assessments deferred until pt is awake. All safety measures in place. Will continue to monitor. Addendum: 08/18/16 at 0630 by ZAUCENA GAYTAN LVN Amended: Links added.
--- NOTE | 2016-08-18 04:00 | NUR ---
COW AND VITALS DEFERRED Pt is asleep at this time. No signs of discomfort/distress noted. Breathing is even and unlabored. Assessments deferred until pt is awake. All safety measures in place. Will continue to monitor. Addendum: 08/18/16 at 0631 by AZUCENA GAYTAN LVN Amended: Links added.
--- NOTE | 2016-08-18 07:01 | NUR ---
END OF SHIFT NOTE Pt is a 21 y/o female admitted for Heroin and Meth dependence and use. Pt has NKA but reported a PMH of spinal kyphosis, spinal surgery x 7 , and 2 seizures r/t benzodiazepine w/d. Pt completed taper and is scheduled for discharge today. Pt didn't receive any PRNS during the shift. Last COW: 1 (1999). Pt slept for a total of 9 hours. All safety measures in place; side rails up x 2, bed locked and in low position, and call light within reach. Will endorse to the oncoming nurse.
--- NOTE | 2016-08-18 07:45 | NUR ---
START OF SHIFT Received report from police shift commander nurse. 21 year old female patient admitted on 08/12/16 for heroin and methamphetamine withdrawals. Pt has [id number] ordered Subutex taper and does not present with acute s/s of withdrawal throughout night. Hx of spinal kyphosis, spinal surgery and seizures related to withdrawals. Pt has remained seizure free throughout hospitalization. Ambulates with a steady gait, NKA, full code and regular diet. Pt remains compliant with treatment plan. Pt refused ordered dose of Robaxin, most recent COWS 1, slept for 9 hours, no PRN medications needed or administered. All needs have been met at this time. Pt has been medically cleared for discharge to [facility]. Safety precautions remain in place, will continue to monitor until safely discharged off the unit.
[2016-08-18] MEDS: METHOCARBAMOL 750 MG TABLET PO SCH (08:17)
[2016-08-18] MEDS: MULTIVITAMINS,THERAPEUTIC TABLET PO SCH (08:17)
[2016-08-18] MEDS: DOCUSATE SODIUM 250 MG CAPSULE PO SCH (08:17)
[2016-08-18 08:18] VITALS: BP 118/77
--- NOTE | 2016-08-18 08:51 | NUR ---
D/C NOTE Pt is A/O x4. V/S remain WNL. Pt denies SI/HI or hallucinations. Pt shows no s/s of acute withdrawal at this time, and is stable. MD has medically cleared pt for d/c. Education on Hepatitis C, smoking cessation and medication side effects provided. Pt verbalizes understanding. All pt belongings are in belonging bag, including prescriptions, and home medications. Refuses PNU vaccination. Pt is being accompanied by RAILWAYS ASSISTANT at this time to be transported to rehab. All needs met.
== END 2016-08-18 08:51 | disposition other institution (70) | DRG 895 ==
LOC: SRC 14:47
PROVIDERS: ADMIT Internal Medicine; ATTEND Internal Medicine
PROC: HZ41ZZZ Group Counseling for Substance Abuse Treatment, Behavioral (ICD-10-PCS; principal; 2016-08-12)
PROC: HZ31ZZZ Individual Counseling for Substance Abuse Treatment, Behavioral (ICD-10-PCS; 2016-08-15)
PROC: HZ2ZZZZ Detoxification Services for Substance Abuse Treatment (ICD-10-PCS; 2016-08-16)
DX: F11.23 Opioid dependence with withdrawal (principal); L03.113 Cellulitis of right upper limb; N39.0 Urinary tract infection, site not specified; Z87.820 Personal history of traumatic brain injury; F41.9 Anxiety disorder, unspecified; Z59.0 Homelessness; M40.209 Unspecified kyphosis, site unspecified; Z83.3 Family history of diabetes mellitus; Z82.49 Family history of ischemic heart disease and other diseases of the circulatory system; Z80.0 Family history of malignant neoplasm of digestive organs; Z83.2 Family history of diseases of the blood and blood-forming organs and certain disorders involving the immune mechanism; Z81.1 Family history of alcohol abuse and dependence; F17.210 Nicotine dependence, cigarettes, uncomplicated; B96.20 Unspecified Escherichia coli [E. coli] as the cause of diseases classified elsewhere; Z65.3 Problems related to other legal circumstances
CPT/HCPCS: 36415; 70030-TC; 80307; 80324; 80361; 83735; 84443; 84703; 85025; 86580; 86592; 86705; 86803; 87077; 87086; 87340; 87806; G0480